=== PATIENT | male | born 1975 | race Asian ===

== ENCOUNTER 2016-11-17 06:17 | Day surgery (SDC) | payer BC, OTHER ==
[2016-11-16 10:12] VITALS: BMI 27.4
--- NOTE | 2016-11-17 12:52 | HP ---
Satellite [facility] - Chief Complaint Chief Complaint: right middle finger mass - Past Medical History Allergies/Adverse Reactions: Allergies Allergy/AdvReac Type Severity Reaction Status Date / Time No Known Allergies Allergy Verified 11/17/16 12:50 - Current Medications Current Medications: Home Medications Medication Instructions Recorded Cetirizine HCl [Zyrtec -] 10 mg PO PRN PRN 11/16/16 Hydrocodone/Acetaminophen [Norman 1 each PO Q6H PRN #40 tablet MDD 4 11/17/16 5-325 Tablet] Satellite Physical Exam - Physical Examination Vital Signs: Vital Signs Period Temp Pulse Resp BP Sys/Bey Pulse Ox Last 24 Hr 98.8 F 74 20 116/72 98 General Appearance: Well Nourished, Well Developed, Alert & Oriented x3 ENT: Clear Lung: Normal air movement Heart: Regular rate & rhythm Extremities: Other (right middle finger- + mass, +ttp, nvi) Neurological: Intact, Alert, Oriented Satellite Impression/Plan - Impression/Plan Impression: right middle finger mass Operative Procedure: right middle finger mass excision Date to be Performed: 11/17/16
[2016-11-17] MEDS ORDERED: MIDAZOLAM HCL 2 MG/2 ML SINGLE DOSE VIAL ONE (15:33)
[2016-11-17] MEDS ORDERED: DEXAMETHASONE SOD PHOSPHATE 4 MG/1 ML VIAL ONE (15:43)
[2016-11-17] MEDS ORDERED: LIDOCAINE HCL 1%, 10 MG/ML (20ML VIAL) ONE (15:44)
[2016-11-17] MEDS ORDERED: ceFAZolin SODIUM 1 GM VIAL ONE (15:44)
[2016-11-17] MEDS ORDERED: ceFAZolin SODIUM 1 GM VIAL IVPB ONE (15:45)
[2016-11-17] MEDS ORDERED: BUPIVACAINE HCL/PF 0.5% (5MG/ML) 10 ML VIAL ONE (15:45)
[2016-11-17] MEDS ORDERED: PROPOFOL 20 ML ONE (15:48)
[2016-11-17] MEDS ORDERED: LIDOCAINE HCL/PF 2% SDV 5ML VIAL ONE (15:48)
[2016-11-17] MEDS ORDERED: LIDOCAINE HCL 1%, 10 MG/ML (20ML VIAL) IJ ONE (15:52)
[2016-11-17] MEDS ORDERED: BUPIVACAINE HCL/PF 0.5% (5MG/ML) 10 ML VIAL IJ ONE (15:52)
[2016-11-17] MEDS ORDERED: ONDANSETRON 4 MG/2 ML VIAL IVPUSH PRN (16:11)
[2016-11-17] MEDS ORDERED: oxyCODONE HCL 5 MG TABLET PO PRN (16:11)
[2016-11-17] MEDS ORDERED: PROMETHAZINE HCL 25 MG/1 ML VIAL IVPUSH PRN (16:11)
[2016-11-17] MEDS ORDERED: LACTATED RINGERS SOLUTION 1,000 ML IV SCH (16:15)
--- NOTE | 2016-11-17 16:15 | OP ---
Operative Note - Note: Operative Date: 11/17/16 Pre-Operative Diagnosis: right middle finger mass Operation: excision mass right middle finger Post-Operative Diagnosis: Same as Pre-op Surgeon: Garrison Lee Anesthesiologist/LAB AID: Tony Caceres Anesthesia: General, Local Specimens Removed: mass right middle finger Estimated Blood Loss (mls): 0 Blood Volume Replaced (mls): 0 Fluid Volume Replaced (mls): 500 Operative Report Dictated: Yes
[2016-11-17 16:46] VITALS: TEMP 98
[2016-11-17 18:19] VITALS: BP 128/78; PULSE 68
--- NOTE | 2016-11-19 13:33 | PATH ---
Surgical Pathology Report Patient Name: DAHIANA SAMPSON [facility]. Rec. #: [id number] /Age/Gender: 1975 (Age: 41) / M Account: [id number] Location: [facility] SURGICAL Taken: 11/17/2016 Received: 11/18/2016 Reported: 11/19/2016 Physicians: Sera Abdi M.D. Specimen(s) Received MASS OF RIGHT MIDDLE FINGER Clinical History Mass right middle finger Final Diagnosis SOFT TISSUE, RIGHT MIDDLE FINGER, MASS, EXCISION: CONSISTENT WITH GIANT CELL TUMOR OF TENDON SHEATH. Electronically Signed Rojelio Hong M.D. Gross Description Received in formalin labeled "right middle finger" is a 1.0 x 0.9 x 0.6 cm parmar, irregular firm nodule. Sectioning reveals homogeneous parmar parenchyma. The specimen is serially sectioned and entirely submitted in one cassette. /11/18/201611/18/2016
--- NOTE | 2016-11-19 14:19 | OP ---
DATE OF OPERATION: 11/17/2016 PREOPERATIVE DIAGNOSIS: Right middle finger mass. POSTOPERATIVE DIAGNOSIS: Right middle finger mass. PROCEDURE: Right middle finger mass excision. SURGEON: Garrison Lee MD DRY CLEANING CHECKER: None. ANESTHESIOLOGIST: Sal Caceres MD ANESTHESIA: MAC anesthesia with local injection of 5 mL of 0.5% Marcaine and 1% lidocaine mix. DRAINS: None. COMPLICATIONS: None. FLUID REPLACEMENT: 500 mL. ESTIMATED BLOOD LOSS: None. BLOOD GIVEN: None. SPECIMEN: Mass, right middle finger. INDICATIONS: This patient is a 41-year-old male with preoperative diagnosis of a mass in the volar tuft of the right middle finger. After understanding the potential risks, complications, alternatives, benefits of surgical versus nonsurgical treatment, the patient has elected to undergo this procedure. He understands that the mass may recur. We are sending this to the pathologist, who will give us a definitive diagnosis. DESCRIPTION OF PROCEDURE: The patient was brought to the operating room, peripheral IV placed, IV sedation given. Then 1 g of IV Ancef was given. The right upper extremity was prepped and draped in the sterile fashion, elevated, exsanguinated with an Esmarch bandage and tourniquet inflated to 250 mmHg. A mid-axial incision was marked on the radial side of the distal phalanx of the right middle finger. Then 5 mL of 0.5% Marcaine and 1% lidocaine mix was injected in and around the surgical incision. The incision was made with a No. 15 scalpel blade to subcutaneous tissue. Hemostasis was achieved with bipolar cautery. Dissection done with a curved Iris scissors. Immediately, a soft tissue mass was identified. Circumferential dissection was done. It was passed off the field as specimen. At one point, I cut it open. It was more soft tissue/fibrous, perhaps a giant cell tumor, but it did not have any fluid component. The area was copiously irrigated and washed out. I did not see or feel any abnormal tissue. Undyed Vicryl, 4-0, was used to close the deep dermal layer and final skin approximation was done with a single interrupted 4-0 nylon suture. The area was then washed and dried and covered with Xeroform, 4 x 4 gauze, Webril, and Coban. Tourniquet was taken down after a total tourniquet time of 14 minutes. There were no complications during this case. The patient tolerated the procedure well and was brought ambulatory recovery room in stable condition. Sera [id number]
== END 2016-11-17 18:19 | disposition home or self-care (01) ==
LOC: JASU-SURG 06:17
PROVIDERS: ATTEND Orthopaedic Surgery
PROC: 0JBJ0ZZ Excision of Right Hand Subcutaneous Tissue and Fascia, Open Approach (ICD-10-PCS; principal; 2016-11-17 13:30)
DX: R22.31 Localized swelling, mass and lump, right upper limb (principal)
CPT/HCPCS: 88305-TC; 94760

== ENCOUNTER 2018-09-06 06:43 | Day surgery (SDC) | payer BC, OTHER ==
[2018-09-05 15:19] VITALS: BMI 29.8
--- NOTE | 2018-09-06 07:43 | HP ---
Satellite [facility] - Chief Complaint Chief Complaint: left shoulder pain - Past Medical History Allergies/Adverse Reactions: Allergies Allergy/AdvReac Type Severity Reaction Status Date / Time No Known Allergies Allergy Verified 09/06/18 07:22 - Current Medications Current Medications: Home Medications Medication Instructions Recorded Fluticasone Prop 0.05% Nasal 1 - 2 spray NS DAILY 09/05/18 [Flonase -] Oxycodone HCl/Acetaminophen 1 - 2 tab PO Q6H #30 tab MDD 6 09/06/18 [Percocet 5-325 mg Tablet] Satellite Physical Exam - Physical Examination Vital Signs: Vital Signs Period Temp Pulse Resp BP Sys/Bey Pulse Ox Last 24 Hr 98.0 F-98.0 F 63-63 20-20 136-136/81-81 100 General Appearance: Well Nourished, Well Developed, Alert & Oriented x3 ENT: Clear Lung: Normal air movement Heart: Regular rate & rhythm Extremities: Other (left shoulder- + ttp, decr rom, + neer, + brush, nvi MRI + partial rct, impingement, ?PVNS, djd) Neurological: Intact, Alert, Oriented Satellite Impression/Plan - Impression/Plan Impression: left shoulder internal derangement Operative Procedure: left shoulder arthroscopy with SAD possible RCR Date to be Performed: 09/06/18
[2018-09-06] MEDS ORDERED: MIDAZOLAM HCL 2 MG/2 ML SINGLE DOSE VIAL ONE ×3 (08:10→09:39)
[2018-09-06] MEDS ORDERED: ROPIVACAINE HCL 0.5% 30ML VIAL ONE (08:11)
[2018-09-06] MEDS ORDERED: DEXAMETHASONE SOD PHOSPHATE 4 MG/1 ML VIAL ONE (08:43)
[2018-09-06] MEDS ORDERED: PROPOFOL 20 ML ONE ×3 (08:43→09:39)
[2018-09-06] MEDS ORDERED: ceFAZolin SODIUM 1 GM VIAL IVPB ONE (09:20)
[2018-09-06] MEDS ORDERED: ceFAZolin SODIUM 1 GM VIAL ONE (09:21)
[2018-09-06] MEDS ORDERED: ONDANSETRON 4 MG/2 ML VIAL IVPUSH PRN (09:40)
[2018-09-06] MEDS ORDERED: oxyCODONE HCL 5 MG TABLET PO PRN ×2 (09:40)
[2018-09-06] MEDS ORDERED: LACTATED RINGERS SOLUTION 1,000 ML IV SCH (09:45)
--- NOTE | 2018-09-06 10:15 | OP ---
Operative Note - Note: Operative Date: 09/06/18 ([facility]) Pre-Operative Diagnosis: left shoulder impingement, rct Operation: left shoulder arthroscopy with SAD, synovectomy Post-Operative Diagnosis: Same as Pre-op Surgeon: Marcial Min [employer] Designer: Garrison Lee) Anesthesiologist/SECRETARY RECEPTIONIST: Darin Joseph Anesthesia: Local, MAC Specimens Removed: shavings Estimated Blood Loss (mls): 5 Operative Report Dictated: Yes
--- NOTE | 2018-09-06 11:05 | OP ---
DATE OF OPERATION: DATE OF DICTATION: 09/06/2018 PREOPERATIVE DIAGNOSES: Left shoulder impingement syndrome and intraarticular synovitis. POSTOPERATIVE DIAGNOSES: Impingement syndrome, intraarticular synovitis and severe glenohumeral osteoarthritis. SURGERY: Left shoulder arthroscopy, subacromial decompression, arthroscopic synovectomy and debridement chondroplasty. SURGEON: Marcial Min MD ORNAMENTAL IRONWORKER: Christine Arechiga MD SECOND ORNAMENTAL IRONWORKER: ALBER Díaz SHIFT MECHANIC/ANESTHESIOLOGIST: , MANAGER POKER with Mike Bond MD ANESTHESIA: Left interscalene block with MAC anesthesia. DRAINS: None. COMPLICATIONS: None. SPECIMEN: Arthroscopic shavings. BLOOD GIVEN: None. FLUID REPLACEMENT: Plasma-Lyte 1000 mL. This patient is a 43-year-old male with a preoperative diagnosis of severe left shoulder pain, subacromial impingement syndrome, intraarticular synovitis and possible glenohumeral osteoarthritis. After understanding the potential risks, complications, alternatives and benefits of surgery versus nonsurgical treatment the patient elected to undergo this procedure. Patient was brought to the operating room. Peripheral IV placed. IV sedation given. Left interscalene block was performed. MAC anesthesia was induced. He was placed into the beach-chair position with ample padding throughout. Left upper extremity was prepped and draped in sterile fashion. Bony landmarks were marked out with a marking pen. A posterior portal was established. A diagnostic glenohumeral arthroscopy was performed. It was immediately apparent the patient had a frayed labrum circumferentially, frayed biceps tendon. The undersurface of the rotator cuff looked good and unfortunately the patient had grade 4 exposed bone osteoarthritis of the humeral head and glenoid with kissing lesions facing each other. There were large flaps of loose cartilage and debris floating around the joint including loose bodies of cartilage. An anterior portal was established under direct visualization using a spinal needle. A Green cannula was introduced into the joint. An ArthroCare wand was introduced into the glenohumeral joint and a partial arthroscopic synovectomy was performed. There was not PVNS as the MRI had potentially suggested. It was just bad synovitis. The synovitis was debrided with coagulation. A shaver was introduced into the joint to remove the cartilaginous debris, loose pieces of synovium, clean up the labrum and do a debridement chondroplasty of the glenoid. It was much brush cleaner when done but still left with significant osteoarthritis which I am sure will continue to cause pain. The patient is a candidate for a total shoulder replacement and will be discussed at a further date. Our attention then turned to the subacromial space. A lateral portal was established using a spinal needle under direct visualization. Patient had a tremendous amount of inflammatory bursitis. A Green cannula was introduced into the subacromial space and a soft tissue bursectomy/extensive debridement performed with the ArthroCare wand and the straight shaver. This bursectomy revealed that there was no top surface rotator cuff tear. The arm was put through a full range of motion. The rotator cuff looked good. Patient had a very large subacromial spur. No distal clavicle spur. A bony decompression was done with the 5.5-mm oval bur, fine tuned with the shaver. Overall it was quite good. Photographs were taken before, during and after the decompression. I was then able to again directly visualize the AC joint. The undersurface of the clavicle looked good as well as the top surface of the rotator cuff. Nothing else needed to be done. The area was copiously irrigated and washed out. All excess saline and bony debris removed. The arthroscopy portals were closed with 3-0 nylon sutures. An Aquacel dressing was applied. Patient was placed into a sling and brought to the ambulatory recovery room in stable condition. Total operative time was about 50 minutes. There were no complications during the case. Patient tolerated the procedure quite well. CHRISTINE ARECHIGA M.D. [id number]
[2018-09-06 11:41] VITALS: TEMP 97.8
[2018-09-06 17:54] VITALS: BP 129/75; PULSE 68
--- NOTE | 2018-09-07 18:32 | PATH ---
Surgical Pathology Report Patient Name: DAHIANA SAMPSON Med. Rec. #: [id number] /Age/Gender: 1975 (Age: 43) / M Account: [id number] Location: [facility] SURGICAL Taken: 09/06/2018 Received: 09/06/2018 Reported: 09/07/2018 Physicians: Sera Abdi M.D. Specimen(s) Received LEFT SHOULDER SHAVINGS Clinical History Left shoulder impingement syndrome Final Diagnosis SHOULDER SHAVINGS, LEFT, ARTHROSCOPY: FRAGMENTS OF BENIGN CARTILAGE, DENSE FIBROCONNECTIVE TISSUE, ADIPOSE TISSUE, AND SKELETAL MUSCLE. Electronically Signed Kathrin Vargas M.D. Gross Description Received in formalin, labeled "shavings left shoulder," is a 5.0 x 4.3 x 0.4 cm. aggregate of parmar-yellow soft tissue fragments. A apprenticeship training representative portion is submitted in one cassette. /09/06/201809/06/2018
== END 2018-09-06 13:05 | disposition home or self-care (01) ==
LOC: JASU-SURG 06:43
PROVIDERS: ATTEND Orthopaedic Surgery
PROC: 0RNK4ZZ Release Left Shoulder Joint, Percutaneous Endoscopic Approach (ICD-10-PCS; principal; 2018-09-06 09:00)
DX: M75.42 Impingement syndrome of left shoulder (principal); M65.812 Other synovitis and tenosynovitis, left shoulder; M19.012 Primary osteoarthritis, left shoulder
CPT/HCPCS: 88304-TC; 94760